=== PATIENT | male | born 1950 | race Caucasian/White ===

== ENCOUNTER → 2017-06-05 | Outpatient (CLI) | payer MEDICARE ==
[~2017-06-05] MED LIST: ADVIL PM; ALPRAZOLAM PO; AMBIEN PO; ANTACID PO; ANTI PO; ASPIRIN PO; ASPIRIN81 M1 PO; ASPIRIN81 M2 PO; BENTYL10 MG PO; BENTYL20 MG PO; CARAFATE1 G; CARAFATE1 G PO; CELEXA20 MG PO; CHOLESTEROL PILL; COREG3.125 MG PO; FAMOTIDINE PO; FENOFIBRATE160 MG PO; HYDROCODON-ACE1 EAC7 PO; LEXAPRO PO; LIDOCAINE VISCOU1 ML PO; LIPITOR20 MG PO; LIPITOR40 MG PO; LISINOPRIL PO; LISINOPRIL10 MG PO; LISINOPRIL20 MG PO; LISINOPRIL5 MG PO; LOSARTAN POTASS50 MG PO; MEDROL4 MG/DOSE- PO; METOPROLOL SUCC50 MG PO; MOBIC15 MG PO; PANTOPRAZOLE SO40 MG PO; PHENERGAN PO; PROTONIX PO; PROTONIX20 MG PO; RED YEAST RICE600 MG PO; SIMVASTATIN40 MG PO; TOPROL XL 50 MG50 MG PO; TOPROL XL50 MG PO; TRAZODONE HCL100 MG PO; VICODIN 5/1 TAB 5/50 PO; XANAX XR0.5 MG PO; XANAX0.5 MG PO; ZANTAC150 MG PO; ZESTRIL5 MG PO; ZOCOR20 MG PO; ZOFRAN ODT4 MG/UDTAB PO; ZOFRAN PO
--- NOTE | ~2017-06-05 | US5 ---
[facility] A Service of [facility] & [facility] RADIOLOGY TEXT RESULTS PATIENT: RAMESH GARNETT LOCATION: [facility] : 46 UNIT #: [id number] AGE: [address]: Aleshia Avery MD SEX: M ORDER DR: [id number] [facility] [address] [place], [place] [address] [id number] O MR#: [id number] Acc #: [id number] NAME: RAMESH GARNETT : 1950 SEX: M STUDY DATE/TIME: 06/05/2017 10:28 UNIT: [facility] ROOM: STUDY DESCRIPTION: US Abdominal Complete Attending Physician: Aleshia Avery M.D. Referring Physician: Aleshia Avery M.D. Ordering Physician: Aleshia Avery M.D. Primary Care Physician: Aleshia Avery M.D. MEDICAL IMAGING REPORT This report is preliminary unless electronic signature is present EXAM Abdominal ultrasound complete, 06/05/2017 HISTORY Abnormally elevated liver enzymes at doctor's appointment 2 weeks ago. Epigastric abdominal pain off and on for 3 months. Alcoholic hepatitis. FINDINGS The liver demonstrates coarsened echotexture and surface nodularity characteristic of cirrhosis. There is also fatty infiltration of the liver. No cystic or solid mass lesions were seen in the liver. The intra and extrahepatic bile ducts are not dilated. The gallbladder is normal with no evidence of cholelithiasis, wall thickening or pericholecystic fluid. The common duct measures 6 mm. The pancreas is poorly visualized due to overlying bowel gas. The spleen is enlarged measuring 14.8 cm in diameter. Visualized portions of the abdominal aorta and inferior vena cava are within normal limits. The kidneys are normal bilaterally. Small amount of perihepatic ascites is noted. IMPRESSION 1. Coarsened liver echotexture and surface nodularity characteristic of hepatic cirrhosis. Fatty infiltration of the liver is noted as well. 2. Normal gallbladder. 3. Poor visualization of the pancreas due to overlying bowel gas. 4. Splenomegaly. 5. Small amount of perihepatic ascites. Dictated by... Jignesh Orozco M.D. THIS IS AN ELECTRONICALLY VERIFIED REPORT [facility] A Service of [facility] & [facility] RADIOLOGY TEXT RESULTS PATIENT: RAMESH GARNETT LOCATION: [facility] : 46 UNIT #: [id number] AGE: [address]: Aleshia Avery MD SEX: M ORDER DR: Jignesh Orozco M.D. at 06/08/2017 2:10 PM DEB/jeffery TD: 06/05/2017 21:17 JOB #: [id number] MEDICAL IMAGING REPORT Page 1 of 1 COPY
== END | disposition home or self-care (01) ==
LOC: CGUS 09:59
DX: K70.10 Alcoholic hepatitis without ascites (principal); R16.1 Splenomegaly, not elsewhere classified; R18.8 Other ascites; R93.2 Abnormal findings on diagnostic imaging of liver and biliary tract
CPT/HCPCS: 76700